=== PATIENT | female | born 1950 | race African-American/Black ===

== ENCOUNTER 2016-06-22 05:55 | Day surgery (SDC) | payer BC, OTHER ==
[2016-06-16 16:52] LABS: HEMATOCRIT 38.3 % (36.0-48.0); HEMOGLOBIN 12.2 g/dL (12.0-16.0)
[2016-06-16 17:07] LABS: BUN (BLOOD UREA NITROGEN) 28 MG/DL (6-23); CALCIUM, SERUM 9.7 MG/DL (8.5-10.4); CHLORIDE, SERUM 110 MMOL/L (96-112); CO2 (CARBON DIOXIDE) 27 MMOL/L (24-34); CREATININE 1.81 MG/DL (0.55-1.02); GFR AFRICAN AMERICAN 33 ML/MIN (>=60); GFR NON AFRICAN AMERICAN 29 ML/MIN (>=60); GLUCOSE, SERUM 97 MG/DL (60-99); SODIUM, SERUM 145 MMOL/L (135-148)
--- NOTE | ~2016-06-22 | OP ---
Record Of Operation [facility] [address] [place]. [address] NAME: SAPPHIRE PEARSON : 50 STATUS : [place] [facility] [place] [id number] AGE: 66 ADM/REG DATE : 06/22/16 MR#: [id number] REPORT SERV DATE: 06/22/16 DICTATED BY: RANDA ARAUZ DATE: 06/22/16 REPORT STATUS : Draft TRANSCRIBED BY: MODL DATE: 06/22/16 DATE OF PROCEDURE: 06/22/2016 PREOPERATIVE DIAGNOSIS: Primary hyperparathyroidism. POSTOPERATIVE DIAGNOSIS: Primary hyperparathyroidism. PROCEDURE: Parathyroidectomy using intraoperative PTH monitoring. SURGEONS: Randa Arauz M.D. BASKET HAND BRAIDER: Anthony Funez M.D. ANESTHESIA: General. ESTIMATED BLOOD LOSS: 10 mL. SPECIMEN: 1. Right superior parathyroid gland. 2. Right inferior parathyroid gland. COMPLICATIONS: None. BRIEF HISTORY: Ms Pearson is a 66-year-old woman, who presented with some conflicting number. She had evidence of primary hyperparathyroidism with elevated calcium and PTH at one point and then her calcium on the next draw was in the middle of the normal range. She had ultrasound, which showed a possible left superior, but it was inconclusive and her sestamibi scan was negative. I have counseled her on the fact that the studies were essentially negative and that due to her kidney disease, we were unable to get a four-dimensional CT. She elected for exploration procedure with the risks including bleeding, infection, injury to the recurrent laryngeal nerve causing hoarseness, low calcium following surgery, and the possibility of recurrent or persistent disease were all explained. She agreed to proceed. DESCRIPTION OF PROCEDURE: After consent was obtained, she was taken to the operating room and placed in supine position on the operating table. General endotracheal anesthesia was administered. A shoulder roll was placed. Neck was extended. She was placed in semi- Carrington's position. Preoperative antibiotics were administered. SCDs were placed. Time-out was performed. We began with a skin crease incision using a 15 blade scalpel. Electrocautery was used to dissect through the subcutaneous tissues and platysma. Subplatysmal flaps were created and the strap muscles were in the midline using electrocautery. Her thyroid was very large and was very low in her neck. She had a very short neck and was difficult to get good exposure as her thyroid was somewhat substernal. We began on the left side and we elevated the left strap muscle and dissected the thyroid away from strap muscle Record Of Operation [facility] [address] [facility] [address] NAME: SAPPHIRE PEARSON : 50 STATUS : REG [facility] PAT#: [id number] AGE: 66 ADM/REG DATE : 06/22/16 MR#: [id number] REPORT SERV DATE: 06/22/16 DICTATED BY: RANDA ARAUZ DATE: 06/22/16 REPORT STATUS : Draft TRANSCRIBED BY: MODL DATE: 06/22/16 back to the carotid. It was difficult to get exposure. We divided the middle thyroid vein. We began at the superior pole as this was where we initially felt that this was going to be located. We dissected around the larynx posteriorly to the esophagus and then off the capsule of thyroid, we could not identify any parathyroid tissue. We then proceeded to the inferior pole just below the inferior thyroid artery and identified a normal-appearing gland at the inferior pole lateral aspect. We then proceeded over to the right side. In similar fashion, we elevated the right strap muscle and dissected the thyroid away from strap muscle back to the carotid. Middle thyroid vein was divided between clips. We began at the inferior pole and identified some slightly enlarged gland off the lateral aspect of the lower third of the capsule of the right thyroid lobe. We then dissected the superior pole with more difficulty but ultimately found what appeared to be the most abnormal-appearing gland of all was very posterior position. It was elevated. It was felt that this was the most abnormal. Therefore, we would go ahead and remove it. We dissected it circumferentially and divided the base by the pedicle between clips. It was passed off the field. We then once again inspected the left superior aspect of the carotid sheath posterior to the esophagus and up around the larynx still identified no parathyroid tissue. We then elected to draw labs. We salomón two labs five minutes apart. Her initial baseline was 180 at the 1st draw and postexcision, it was 100, and then 2nd draw, it increased up to 120 again. We were then planning to remove the left inferior, as well as taken the inferior thyroid artery close to the carotid in order to potentially devascularize whenever gland we were missing. However, we inspected the right inferior, it appeared very ischemic, and therefore, I did not feel comfortable with the previous plan. I then removed the right inferior and I elected to stop the case if not leave her aparathyroid. We elevated the right inferior gland and divided the pedicle between clips and passed off the field. We then placed Surgicel on both sides of the neck. Hemostasis was good. We reapproximated the strap muscles in the midline using a running 3-0 Vicryl suture with a small gap left inferiorly. The platysma was reapproximated with interrupted 4-0 Vicryl sutures. A running 5-0 Monocryl deep dermal suture was placed followed by running 5-0 Prolene subcuticular stitch. The neck was cleaned, Dermabond was applied, and the Prolene was removed. The patient tolerated the procedure well. She was extubated in the operating room and sent to the recovery room in stable condition. ALLISON/AURAL Randa Arauz MD / [id number] CC: MD RUBI Jimenez ANDREA MICHELLE
[~2016-06-22 05:55] MED LIST: ASAB PO; COREG6 PO; COZAAR100 MG PO; FOSAMAX70 MG PO; L20 PO; NEUR100 PO; NORV10 PO; ZANTAC150 MG PO
[2016-06-22 06:39] LABS: PTH (INTRAOPERATIVE) 180.4 PG/ML (10.0-65.0); PTH TAT 0 Hrs 22 Mins
[2016-06-22 10:19] LABS: PTH (INTRAOPERATIVE) 106.9 PG/ML (10.0-65.0); PTH TAT 0 Hrs 19 Mins
[2016-06-22 10:23] LABS: PTH TAT 0 Hrs 18 Mins
[2016-06-22 11:22] LABS: PTH (INTRAOPERATIVE) 34.6 PG/ML (10.0-65.0); PTH TAT 0 Hrs 21 Mins
== END 2016-06-22 16:38 | disposition home or self-care (01) ==
LOC: SDC 05:55
PROVIDERS: Surgery
PROC: 0GBR0ZZ Excision of Parathyroid Gland, Open Approach (ICD-10-PCS; principal; 2016-06-22 07:45)
DX: D35.1 Benign neoplasm of parathyroid gland (principal); I12.9 Hypertensive chronic kidney disease with stage 1 through stage 4 chronic kidney disease, or unspecified chronic kidney disease; N18.9 Chronic kidney disease, unspecified; E21.3 Hyperparathyroidism, unspecified; M10.9 Gout, unspecified; Q61.3 Polycystic kidney, unspecified; K21.9 Gastro-esophageal reflux disease without esophagitis; R06.83 Snoring; H26.9 Unspecified cataract; Z87.891 Personal history of nicotine dependence; Z90.49 Acquired absence of other specified parts of digestive tract; Z79.899 Other long term (current) drug therapy; Z79.82 Long term (current) use of aspirin; Z90.710 Acquired absence of both cervix and uterus
CPT/HCPCS: 36415; 80048; 83970; 85014; 85018; 88305; 88313; 93005; J0690; J1170; J2250; J2405; J2710; J3010